=== PATIENT | female | born 1950 | race Caucasian/White ===

== ENCOUNTER 2016-10-10 11:58 | Inpatient (IN) | payer MEDICAID ==
[~2016-10-10] VITALS: Ht 152.4 cm; Wt 65.8 kg
[~2016-10-10 11:58] MED LIST: A/B OTIC15 ML; ARICEPT10 MG PO; BENADRYL ALLERG25 M1 PO; CALCIUM1 TA1 PO; CLARITHROMYCIN500 M1 PO; CLINDAMYCIN300 M1 PO; CLONAZEPAM0.5 MG PO; COL100 PO; DAILY MULTIPLE1 TAB PO; DEPAKOTE500 MG PO; FOLIC ACID1 MG PO; LAC PO; LEVAQUIN750 MG PO; LIPITOR20 MG PO; MEG40 PO; METFORMIN HCL500 MG PO; MIRALAX17 GM/Dose PO; NAMENDA10 M2 PO; PREDNISONE20 MG PO; RESTORIL15 MG PO; RIS1 PO; ROBDML PO; SEROQUEL XR200 M1 PO; SYNTHROID0.075 MG PO; TYLENOL PO; VITAMIN D32000 I2 PO; ZOLOFT50 MG PO; [UNRECOGNIZED DRUG - OTHER] PO
[2016-10-10 13:02] LABS: BASOPHIL % 0.3 % (0-2); PLATELET COUNT 221 x10^3mcL (130-400)
[2016-10-10 13:04] LABS: RED CELL DISTRIBUTION WIDTH 14.9 % (11.5-14.5)
[2016-10-10 13:16] LABS: CALCIUM 9.4 mg/dL (8.5-10.1); CARBON DIOXIDE 31.3 mmol/L (21-32); CHLORIDE SERUM 104 mmol/L (98-107); CREATININE SERUM 0.7 mg/dL (0.6-1.0); GFR1 > 60 mL/min; GLUCOSE SERUM 95 mg/dL (74-106); SODIUM SERUM 142 mmol/L (136-145)
[2016-10-10 13:20] LABS: ALBUMIN 3.6 g/dL (3.4-5.0); ALKALINE PHOSPHATASE 133 U/L (46-116); ALT/SGPT 32 U/L (14-59); AST/SGOT 24 U/L (15-37); BILIRUBIN TOTAL 0.23 mg/dL (0.20-1.00); TOTAL PROTEIN, SERUM 7.8 g/dL (6.4-8.2)
[2016-10-10 16:06] VITALS: BP 138/68
[2016-10-10 17:19] LABS: microscopic required? NO
[2016-10-10 17:27] LABS: urine erythrocyte NEGATIVE (NEGATIVE)
[2016-10-10 17:32] VITALS: BP 138/68
[2016-10-10 17:45] LABS: CHOLESTEROL/HDL RATIO 3.7
[2016-10-10 17:58] LABS: FREE T4 1.09 ng/dL (0.76-1.46); T4(THYROXINE) 8.6 ug/dL (4.7-13.3)
[2016-10-10 18:04] VITALS: BP 96/54
[2016-10-10 18:47] LABS: MAGNESIUM 2.1 mg/dL (1.8-2.4); PHOSPHOROUS 4.7 mg/dL (2.5-4.9)
[2016-10-10] MEDS ORDERED: CLONAZEPAM1 MG PO (19:08)
[2016-10-10] MEDS ORDERED: SYNTHROID0.1 MG PO (19:11)
[2016-10-10] MEDS ORDERED: RISPERDAL0.5 MG PO (19:13)
[2016-10-10] MEDS ORDERED: RISPERIDONE0.5 M2 PO (19:13)
[2016-10-10] MEDS ORDERED: ZOLOFT100 MG PO (19:15)
[2016-10-10] MEDS ORDERED: BENZTROPINE ME0.5 MG PO (19:17)
[2016-10-10] MEDS ORDERED: METFORMIN500 M1 PO (19:18)
[2016-10-10] MEDS ORDERED: BENADRYL ALLERG25 M1 PO (19:19)
[2016-10-10] MEDS ORDERED: REQUIP0.5 MG PO ×2 (19:20)
[2016-10-10] MEDS ORDERED: LASIX20 MG PO (19:22)
[2016-10-10 21:15] VITALS: BP 117/68
[2016-10-11 05:50] VITALS: BP 101/51
[2016-10-11 09:45] VITALS: BP 128/93
[2016-10-11 11:54] VITALS: Ht 152.4 cm; Wt 65.8 kg
[2016-10-11 12:58] VITALS: BP 127/76
[2016-10-11 20:25] VITALS: BP 126/67
[2016-10-12 06:44] VITALS: BP 121/70
[2016-10-12] MEDS ORDERED: LAC PO (09:40)
[2016-10-12] MEDS ORDERED: LEVOFLOXACIN500 M1 PO (09:42)
[2016-10-12] MEDS ORDERED: CLEOCIN HCL150 MG PO ×2 (09:44→12:50)
[2016-10-12 12:42] LABS: AMPHETAMINE QUAL UR NONE DETECTED (NEG <=1000)
[2016-10-12 13:32] VITALS: BP 121/70
== END 2016-10-12 14:25 | DRG 137 ==
LOC: ED 11:58 → DU 15:13 → MU 10-11 15:56
PROVIDERS: Emergency Medicine; Family Medicine; ADMIT Family Medicine
DX: J69.0 Pneumonitis due to inhalation of food and vomit (principal); N17.0 Acute kidney failure with tubular necrosis; G93.41 Metabolic encephalopathy; E11.51 Type 2 diabetes mellitus with diabetic peripheral angiopathy without gangrene; E11.59 Type 2 diabetes mellitus with other circulatory complications; D68.69 Other thrombophilia; M41.9 Scoliosis, unspecified; G80.9 Cerebral palsy, unspecified; F79 Unspecified intellectual disabilities; I10 Essential (primary) hypertension; E78.1 Pure hyperglyceridemia; E03.9 Hypothyroidism, unspecified; F20.9 Schizophrenia, unspecified; Z79.52 Long term (current) use of systemic steroids; Z79.84 Long term (current) use of oral hypoglycemic drugs; Z68.28 Body mass index [BMI] 28.0-28.9, adult
CPT/HCPCS: 80307; 82962; 83880; 84439; G0480; J1956; J3490; J7030; J7620; Q0092; Q0163

== ENCOUNTER → 2016-11-28 | Outpatient (CLI) | payer MEDICAID ==
[~2016-11-28] MED LIST changes: +BENZTROPINE ME0.5 MG PO; +CLEOCIN HCL150 MG PO; +CLONAZEPAM1 MG PO; +LASIX20 MG PO; +LEVOFLOXACIN500 M1 PO; +METFORMIN500 M1 PO; +REQUIP0.5 MG PO; +RISPERDAL0.5 MG PO; +RISPERIDONE0.5 M2 PO; +SYNTHROID0.1 MG PO; +ZOLOFT100 MG PO
== END | disposition home or self-care (01) ==
LOC: RD 10:59
DX: M25.512 Pain in left shoulder (principal)

== ENCOUNTER → 2016-12-10 | Outpatient (CLI) | payer MEDICAID | END | disposition home or self-care (01) | LOC: US 09:41 | PROC: BW4GZZZ Ultrasonography of Pelvic Region (ICD-10-PCS; principal; 2016-12-10) | DX: R10.2 Pelvic and perineal pain (principal) ==

== ENCOUNTER 2017-05-07 14:32 | Emergency (ER) | payer MEDICAID ==
[2017-05-07 15:54] LABS: CALCIUM 8.8 mg/dL (8.5-10.1); CARBON DIOXIDE 29.9 mmol/L (21-32); CHLORIDE SERUM 99 mmol/L (98-107); CREATININE SERUM 0.7 mg/dL (0.6-1.0); GFR1 > 60 mL/min; GLUCOSE SERUM 106 mg/dL (74-106); POTASSIUM SERUM 3.7 mmol/L (3.5-5.1); SODIUM SERUM 135 mmol/L (136-145)
[2017-05-07 15:57] LABS: BASOPHIL % 0.2 % (0-2); PLATELET COUNT 160 x10^3mcL (130-400)
[2017-05-07 16:00] LABS: RED CELL DISTRIBUTION WIDTH 14.6 % (11.5-14.5)
[2017-05-07 16:05] LABS: ALKALINE PHOSPHATASE 109 U/L (46-116); ALT/SGPT 28 U/L (14-59); AST/SGOT 20 U/L (15-37); BILIRUBIN TOTAL 0.2 mg/dL (0.20-1.00); TOTAL PROTEIN, SERUM 7.3 g/dL (6.4-8.2)
[2017-05-07 16:07] LABS: ALBUMIN 2.9 g/dL (3.4-5.0)
[2017-05-07 16:36] LABS: CK-MB 0.9 ng/mL (0-3.6)
[2017-05-07 16:52] LABS: UA SPECIFIC GRAVITY <=1.005 (1.005-1.035); microscopic required? YES; urine erythrocyte 1+ (NEGATIVE)
[2017-05-07 18:14] VITALS: BP 118/67
== END 2017-05-07 18:14 | disposition home or self-care (01) ==
LOC: ED 14:32
PROVIDERS: Emergency Medicine
DX: R50.9 Fever, unspecified (principal); E07.9 Disorder of thyroid, unspecified
CPT/HCPCS: 83880; 87804; J7030

== ENCOUNTER 2017-11-22 10:41 | Emergency (ER) | payer MEDICAID ==
[~2017-11-22] VITALS: Ht 149.9 cm; Wt 66.0 kg
[2017-11-22 11:02] VITALS: Ht 149.9 cm; Wt 66.0 kg
[2017-11-22 13:24] VITALS: BP 129/77
== END 2017-11-22 13:24 | disposition home or self-care (01) ==
LOC: ED 10:41
DX: L03.116 Cellulitis of left lower limb (principal); I10 Essential (primary) hypertension; E11.9 Type 2 diabetes mellitus without complications; F20.9 Schizophrenia, unspecified; E78.5 Hyperlipidemia, unspecified; E03.9 Hypothyroidism, unspecified
CPT/HCPCS: J1885; J1956; J3490; J7030

== ENCOUNTER 2018-05-29 11:42 | Emergency (ER) | payer MEDICAID ==
[~2018-05-29] VITALS: Ht 144.8 cm; Wt 63.5 kg
[2018-05-29 12:01] VITALS: Ht 144.8 cm; Wt 63.5 kg
[2018-05-29 13:15] LABS: CALCIUM 8.8 mg/dL (8.5-10.1); CARBON DIOXIDE 30.2 mmol/L (21-32); CHLORIDE SERUM 103 mmol/L (98-107); CREATININE SERUM 0.6 mg/dL (0.6-1.0); GFR1 > 60 mL/min; GLUCOSE SERUM 103 mg/dL (74-106); POTASSIUM SERUM 3.2 mmol/L (3.5-5.1); SODIUM SERUM 142 mmol/L (136-145)
[2018-05-29 13:22] LABS: ALKALINE PHOSPHATASE 104 U/L (46-116); ALT/SGPT 54 U/L (14-59); AST/SGOT 40 U/L (15-37); BILIRUBIN TOTAL 0.3 mg/dL (0.20-1.00); TOTAL PROTEIN, SERUM 7.3 g/dL (6.4-8.2)
[2018-05-29 13:25] LABS: ALBUMIN 3.2 g/dL (3.4-5.0); BASOPHIL % 0.2 % (0-2); PLATELET COUNT 267 x10^3mcL (130-400)
[2018-05-29 13:34] LABS: RED CELL DISTRIBUTION WIDTH 14.9 % (11.5-14.5)
[2018-05-29 14:45] VITALS: BP 107/59
== END 2018-05-29 14:45 | disposition left against medical advice (07) ==
LOC: ED 11:42
PROVIDERS: Emergency Medicine
DX: L03.116 Cellulitis of left lower limb (principal); I10 Essential (primary) hypertension; E11.9 Type 2 diabetes mellitus without complications; F20.9 Schizophrenia, unspecified; G21.9 Secondary parkinsonism, unspecified; E03.9 Hypothyroidism, unspecified
CPT/HCPCS: 85378; J0696; Q0092

== ENCOUNTER 2018-06-03 08:51 | Inpatient (IN) | payer MEDICAID ==
[~2018-06-03] VITALS: Ht 157.5 cm; Wt 61.2 kg
[2018-06-03 08:56] VITALS: Ht 157.5 cm; Wt 61.2 kg
[2018-06-03 09:47] LABS: BASOPHIL % 0.1 % (0-2); PLATELET COUNT 273 x10^3mcL (130-400)
[2018-06-03 09:57] LABS: RED CELL DISTRIBUTION WIDTH 14.6 % (11.5-14.5)
[2018-06-03 10:07] LABS: CALCIUM 9.9 mg/dL (8.5-10.1); CHLORIDE SERUM 99 mmol/L (98-107); CREATININE SERUM 0.9 mg/dL (0.6-1.0); GFR1 > 60 mL/min; GLUCOSE SERUM 104 mg/dL (74-106); POTASSIUM SERUM 3.8 mmol/L (3.5-5.1); SODIUM SERUM 137 mmol/L (136-145)
[2018-06-03 10:16] LABS: ALBUMIN 3.6 g/dL (3.4-5.0); ALKALINE PHOSPHATASE 121 U/L (46-116); ALT/SGPT 36 U/L (14-59); AST/SGOT 30 U/L (15-37); BILIRUBIN TOTAL 0.27 mg/dL (0.20-1.00); C REACTIVE PROTEIN 0.9 mg/dL (<=0.9)
[2018-06-03 10:18] LABS: TOTAL PROTEIN, SERUM 8.3 g/dL (6.4-8.2)
[2018-06-03 10:20] LABS: CK-MB 3.6 ng/mL (0-3.6); T3 TOTAL 1.02 ng/mL
[2018-06-03 10:22] LABS: FREE T4 1.41 ng/dL (0.76-1.46)
[2018-06-03 10:26] LABS: FREE THYROXINE INDEX 4.8 ug/dL (1.4-4.5); T4(THYROXINE) 14.5 ug/dL (4.7-13.3)
[2018-06-03 11:14] LABS: ERYTHROCYTE SED RATE 19 mm/hr (0-30)
[2018-06-03 12:34] LABS: PHOSPHOROUS 3.9 mg/dL (2.5-4.9)
[2018-06-03 13:36] VITALS: BP 115/71
[2018-06-03 15:15] LABS: microscopic required? NO
[2018-06-03 15:37] LABS: urine erythrocyte NEGATIVE (NEGATIVE)
[2018-06-03 16:47] VITALS: BP 118/79
[2018-06-03 21:09] VITALS: BP 113/63
[2018-06-04 06:00] VITALS: BP 116/50
[2018-06-04 06:41] LABS: CALCIUM 8.9 mg/dL (8.5-10.1); CARBON DIOXIDE 28.5 mmol/L (21-32); CHLORIDE SERUM 102 mmol/L (98-107); CREATININE SERUM 0.8 mg/dL (0.6-1.0); GFR1 > 60 mL/min; GLUCOSE SERUM 90 mg/dL (74-106); POTASSIUM SERUM 4.2 mmol/L (3.5-5.1); SODIUM SERUM 137 mmol/L (136-145)
[2018-06-04 06:42] LABS: BASOPHIL % 0.1 % (0-2); PLATELET COUNT 211 x10^3mcL (130-400); RED CELL DISTRIBUTION WIDTH 14.5 % (11.5-14.5)
[2018-06-04 08:49] VITALS: BP 123/62
[2018-06-04 20:42] VITALS: BP 107/57
[2018-06-05 05:50] VITALS: BP 149/63
[2018-06-05 07:12] LABS: BASOPHIL % 0.3 % (0-2); PLATELET COUNT 207 x10^3mcL (130-400)
[2018-06-05 07:29] LABS: CALCIUM 8.5 mg/dL (8.5-10.1); CARBON DIOXIDE 24.9 mmol/L (21-32); CHLORIDE SERUM 103 mmol/L (98-107); CREATININE SERUM 0.8 mg/dL (0.6-1.0); GFR1 > 60 mL/min; GLUCOSE SERUM 96 mg/dL (74-106); POTASSIUM SERUM 3.8 mmol/L (3.5-5.1); SODIUM SERUM 135 mmol/L (136-145)
[2018-06-05 07:57] LABS: RED CELL DISTRIBUTION WIDTH 14.7 % (11.5-14.5)
[2018-06-05 10:39] VITALS: BP 121/60
[2018-06-05 18:00] VITALS: BP 110/60
[2018-06-05 19:00] VITALS: BP 140/51
[2018-06-06 05:37] VITALS: BP 137/99
[2018-06-06] MEDS ORDERED: CLINDAMYCIN HC300 MG PO (09:22)
[2018-06-06 09:24] VITALS: BP 118/58
[2018-06-06 09:26] VITALS: BP 118/58
== END 2018-06-06 11:43 | DRG 383 ==
LOC: ED 08:51 → MU 10:56
PROVIDERS: Specialist; ADMIT Family Medicine
DX: L03.116 Cellulitis of left lower limb (principal); G93.49 Other encephalopathy; G20 Parkinson's disease; E87.1 Hypo-osmolality and hyponatremia; G30.9 Alzheimer's disease, unspecified; F20.9 Schizophrenia, unspecified; F02.80 Dementia in other diseases classified elsewhere, unspecified severity, without behavioral disturbance, psychotic disturbance, mood disturbance, and anxiety; E11.9 Type 2 diabetes mellitus without complications; E78.5 Hyperlipidemia, unspecified; E05.90 Thyrotoxicosis, unspecified without thyrotoxic crisis or storm; T45.1X5A Adverse effect of antineoplastic and immunosuppressive drugs, initial encounter; Z79.899 Other long term (current) drug therapy; Z85.3 Personal history of malignant neoplasm of breast; Z79.84 Long term (current) use of oral hypoglycemic drugs
CPT/HCPCS: 84439; 97110-GP; 97116-GP; 97530-GP; J1644; J2543; J3490; J7030

== ENCOUNTER → 2018-06-30 | Outpatient (CLI) | payer MEDICAID ==
[~2018-06-30] MED LIST changes: +CLINDAMYCIN HC300 MG PO
== END | disposition home or self-care (01) ==
LOC: US 08:47
PROC: BW4GZZZ Ultrasonography of Pelvic Region (ICD-10-PCS; principal; 2018-06-30)
DX: R10.2 Pelvic and perineal pain (principal)

== ENCOUNTER → 2019-06-28 | Outpatient (CLI) | payer MEDICAID | END | disposition home or self-care (01) | LOC: MA 06-13 09:30 | PROC: BH00ZZZ Plain Radiography of Right Breast (ICD-10-PCS; principal; 2019-06-28) | DX: Z12.31 Encounter for screening mammogram for malignant neoplasm of breast (principal); R92.8 Other abnormal and inconclusive findings on diagnostic imaging of breast | CPT/HCPCS: 77065 ==

== ENCOUNTER → 2019-12-01 | Outpatient (CLI) | payer MEDICAID | END | disposition home or self-care (01) | LOC: RD 08:58 | DX: R26.9 Unspecified abnormalities of gait and mobility (principal) ==

== ENCOUNTER → 2020-03-08 | Outpatient (CLI) | payer MEDICAID | END | disposition home or self-care (01) | LOC: RD 12:32 | DX: R63.4 Abnormal weight loss (principal) ==

== ENCOUNTER → 2020-07-25 | Outpatient (CLI) | payer MEDICAID | END | disposition home or self-care (01) | LOC: MA 09:30 | PROC: BW4GZZZ Ultrasonography of Pelvic Region (ICD-10-PCS; principal; 2020-07-25) | PROC: BH00ZZZ Plain Radiography of Right Breast (ICD-10-PCS; 2020-07-25) | DX: R10.2 Pelvic and perineal pain (principal); R92.8 Other abnormal and inconclusive findings on diagnostic imaging of breast | CPT/HCPCS: 77065 ==